=== PATIENT | female | born 1970 | race Caucasian/White ===

== ENCOUNTER → 2022-05-15 16:58 | Outpatient (BNVA) | payer OTHER, SELFPAY | PROVIDERS: PCP Family Medicine; Visit Provider Psychiatry & Neurology Psychiatry | DX: Z13.89 Encounter for screening for other disorder (principal) ==

== ENCOUNTER 2022-10-09 16:48 | Outpatient (AMB) | payer OTHER, SELFPAY ==
--- NOTE | 2022-10-09 15:43 | MHC.OFFVISPS ---
Intake Intake Visit Reasons: depression Allergies No Known Allergies [No Known Allergies*] Allergy (Unverified 11/26/19 15:53) HPI- Psychiatric Chief Complaint: depression HPI Narrative: Pt has been doing well , doing well well with her partner ,pts son has been tx for depression Son has taken leave from grad school he is in tx now they are living together the patient was initially quite shocked but now feels she has seen the signs. Her own mood Has been okay is stable. No significant panic has been in stable relationship with her partner Past Psychiatric History: Past history of ADD and depression Mental Status Exam Mental Status Exam Narrative: Mental Status Exam Narrative: Appearance: Casually dressed Behavior: Cooperative appropriate psychomotor: Within normal limits Speech: Normal volume and prosody Thought proccess logical and goal-directed Thought content: Future oriented no self-harming thoughts Mood: Euthymic Affect: Appropriate to mood full affect SI:denies HI:denies VH/AH:none Delusions: None Insight/judgment: Good insight and judgment Memory/cog: Intact Telehealth Telehealth Location of provider rendering services: practice address Location of patient: address on file Patient Identification confirmed using: Name, : Yes Telehealth method: video Patient verbally consented to treatment: Yes Patient verbally consented to billing insurance company: Yes Minutes spent on Phone/Video with Pt.: 40 Assessment and Plan Assessment & Plan (1) ADD (attention deficit disorder) without hyperactivity: Status: Acute Code(s): F98.8 - Other specified behavioral and emotional disorders with onset usually occurring in childhood and adolescence (2) Family circumstance: Status: Acute Code(s): Z63.9 - Problem related to primary support group, unspecified Plan discussion regarding patient's son things to watch at for , potential options for treatment. Patient quite solid relationship with her male partner supportive. Appropriate concerns regarding her son who is now taken a medical leave apparently has had a quite significant depressive episode. He has been more open and forthcoming recently. Did review near options for treatment as the patient her son live in [place] if he needs more intensive outpatient treatment. Medications: Refilled methylphenidate HCl (Ritalin) 15 mg (1.5 x 10 mg) PO BID 180 tabs 0RF F98.8 - Other specified behavioral and emotional disorders with onset usually occurring in childhood and adolescence Counseling and coordination of Care Details-Self Mgmt counseling: discussion regarding her son who is in tx for dep had to drop out of grad school Diagnosis and Prognosis Counseling: Adequacy of current interventions Details: I spent [40] minutes reviewing the record, seeing the patient and documenting in the medical record. Counseling provided to the patient/caregiver as outlined below. Addressed patient/caregiver concerns regarding current medication regime including effective adherence. Addressed patient/caregiver concerns regarding diagnosis and prognosis including accuracy of diagnosis, prognosis over time, impact of diagnosis. Addressed patient/caregiver concerns regarding impact of recent stressors. [facility] Medical History (Updated 01/22/22 @ 16:05 by Martell Villela MD) ADD (attention deficit disorder) without hyperactivity Social History: The patient works for [employer] lives with her long-term male partner has 1 son Substance History: None Coding Level of Care Code Est Pt Level 3 (93887) Therapy 30m w/E&M (14430) Diagnoses ADD (attention deficit disorder) without hyperactivity F98.8 Family circumstance Z63.9
== END 2022-10-09 16:49 | disposition home or self-care (01) ==
LOC: HO.HOP 16:48
PROVIDERS: PCP Family Medicine; Visit Provider Psychiatry & Neurology Psychiatry
DX: F98.8 Other specified behavioral and emotional disorders with onset usually occurring in childhood and adolescence (principal); Z63.9 Problem related to primary support group, unspecified
CPT/HCPCS: 90833; 99213

== ENCOUNTER → 2022-10-09 16:48 | Outpatient (BNVA) | payer OTHER, SELFPAY | PROVIDERS: PCP Family Medicine; Visit Provider Psychiatry & Neurology Psychiatry ==

== ENCOUNTER 2023-04-25 17:24 | Outpatient (AMB) | payer OTHER, SELFPAY ==
--- NOTE | 2023-04-25 16:18 | A.OFFPSYCH_ITS ---
Intake Intake Visit Reasons: depression Allergies No Known Allergies [No Known Allergies*] Allergy (Unverified 11/26/19 15:53) HPI- Psychiatric Chief Complaint: depression HPI Narrative: Pt had recent break up with her partner over her son living in the house after mental health crisis last yr break up happened 1 month ago . Trigger seem to be her son continuing to live with them and he had a mental health crisis last year and was trying to get back on his feet feels somewhat bittersweet regarding the situation were together off and on 10 yrs but feels good about the current decision Some appropriate sadness and anxiety but generally doing well continues to feel methylphenidate helpful has had some low-dose lorazepam in the past p.r.n. for anxiety Not overly depressed or preoccupied continues to do well at work [employer] generally works from home Past Psychiatric History: Past history of ADD and depression Mental Status Exam Mental Status Exam Narrative: Mental Status Exam Narrative: Appearance: Casually dressed Behavior: Cooperative appropriate psychomotor: Within normal limits Speech: Normal volume and prosody Thought proccess logical and goal-directed Thought content: Future oriented some concerns regarding break up Mood: some anxiety Affect: Appropriate to mood SI:denies HI:denies VH/AH:none Delusions: None Insight/judgment: Good insight and judgment Memory/cog: Intact Telehealth Telehealth Location of provider rendering services: practice address Location of patient: address on file Patient Identification confirmed using: Name, : Yes Telehealth method: video Patient verbally consented to treatment: Yes Patient verbally consented to billing insurance company: Yes Minutes spent on Phone/Video with Pt.: 32 Assessment and Plan Assessment & Plan (1) ADD (attention deficit disorder) without hyperactivity: Status: Acute Code(s): F98.8 - Other specified behavioral and emotional disorders with onset usually occurring in childhood and adolescence (2) Family circumstance: Status: Acute Code(s): Z63.9 - Problem related to primary support group, unspecified Plan Patient generally stable has been dealing with on again off again relationship with her live-in partner this appears to be the end the relationship patient appears to be dealing with it appropriately. She does have a history of depression her son had had his depression last year patient has done okay off antidepressant continues to feel methylphenidate helpful Given some lorazepam for occasional insomnia panic Medications: Refilled lorazepam 0.5 mg PO BID PRN 30 tabs 1RF anxiety methylphenidate HCl (Ritalin) 15 mg (1.5 x 10 mg) PO BID 180 tabs 0RF F98.8 - Other specified behavioral and emotional disorders with onset usually occurring in childhood and adolescence Counseling and coordination of Care Pt. Self Management counseling: Sleep hygiene and Behavior activation Medication management counseling: Effectiveness and Side effects Diagnosis and Prognosis Counseling: Problematic behaviors secondary to diagnosis Details: I spent [37] minutes reviewing the record, seeing the patient and documenting in the medical record. Counseling provided to the patient/caregiver as outlined below. Addressed patient/caregiver concerns regarding current medication regime including effective adherence. Addressed patient/caregiver concerns regarding diagnosis and prognosis including accuracy of diagnosis, prognosis over time, impact of diagnosis. Addressed patient/caregiver concerns regarding impact of recent stressors. [facility] Medical History (Updated 01/22/22 @ 16:05 by Martell Villela MD) ADD (attention deficit disorder) without hyperactivity Social History: The patient works for [employer] lives with her long-term male partner has 1 son Substance History: None Coding Level of Care Code Tele Est Pt Level 3 (19736) Tele Therapy 30m w/E&M (73701) Diagnoses ADD (attention deficit disorder) without hyperactivity F98.8 Family circumstance Z63.9
== END 2023-04-25 17:25 | disposition home or self-care (01) ==
LOC: HO.HOP 17:24
PROVIDERS: PCP Family Medicine; Visit Provider Psychiatry & Neurology Psychiatry
DX: F98.8 Other specified behavioral and emotional disorders with onset usually occurring in childhood and adolescence (principal); Z63.9 Problem related to primary support group, unspecified
CPT/HCPCS: 90833; 99213

== ENCOUNTER → 2023-04-25 17:24 | Outpatient (BNVA) | payer OTHER, SELFPAY | PROVIDERS: PCP Family Medicine; Visit Provider Psychiatry & Neurology Psychiatry | DX: F98.8 Other specified behavioral and emotional disorders with onset usually occurring in childhood and adolescence (principal) ==

== ENCOUNTER 2023-09-06 11:51 | Outpatient (AMB) | payer OTHER, SELFPAY ==
--- NOTE | 2023-09-06 11:55 | MHC.OFFVISPS ---
Intake Vital Signs 09/08/23 21:27 BP 117/75 Intake Visit Reasons: depression Allergies No Known Allergies [No Known Allergies*] Allergy (Unverified 11/26/19 15:53) Medication List - Last Reconciled 09/06/23 by Martell Villela MD lorazepam 0.5 mg PO BID PRN methylphenidate HCl (Ritalin) 15 mg (1.5 x 10 mg) PO BID HPI- Psychiatric Chief Complaint: depression HPI Narrative: The pt has generally been doing well had breakup earlier in the yr . Son living with the pt did [employer] will be getting a job he will be staying around for period of time. Son has had tx for anxiety dx generally doing well. No new medical issues . The patient has felt more scattered some difficulty at times with attention distractibility. Her son reportedly will be sharing the house with patient and living together ongoing at least for now. This is reassuring to the patient there has been some financial stress since she and her long-term boyfriend broke up Past Psychiatric History: Past history of ADD and depression Mental Status Exam Mental Status Exam Narrative: Mental Status Exam Narrative: Appearance: Casually dressed Behavior: Cooperative appropriate psychomotor: Within normal limits Speech: Normal volume and prosody Thought proccess logical and goal-directed Thought content: Future oriented some concerns regarding future Mood: some anxiety Affect: Appropriate to mood SI:denies HI:denies VH/AH:none Delusions: None Insight/judgment: Good insight and judgment Memory/cog: Intact Assessment and Plan Assessment & Plan (1) ADD (attention deficit disorder) without hyperactivity: Status: Acute Code(s): F98.8 - Other specified behavioral and emotional disorders with onset usually occurring in childhood and adolescence Plan The patient is having some perimenopausal symptoms we discussed different strategies and options to deal with insomnia and hot flashes she also may be grinding her teeth at night we discussed a trial of gabapentin risks benefits alternatives discussed discussed the addition B vitamins patient will be seeing her PCP and developer relations manager increase Ritalin from 30 mg to 40 mg day blood pressure 117/75 follow-up 2 months Medications: New gabapentin 100 - 300 mg (1 - 3 x 100 mg) PO BEDTIME 90 caps 1RF Changed From methylphenidate HCl (Ritalin) 15 mg (1.5 x 10 mg) PO BID 180 tabs 0RF F98.8 - Other specified behavioral and emotional disorders with onset usually occurring in childhood and adolescence To methylphenidate HCl (Ritalin) orally; 1 1/2 tabs morning and aft may take 1 tab daily also as needed add sx 240 tabs 0RF 2 months F98.8 - Other specified behavioral and emotional disorders with onset usually occurring in childhood and adolescence Counseling and coordination of Care Medication management counseling: Effectiveness, Side effects and Dosing range Details: I spent [38] minutes reviewing the record, seeing the patient and documenting in the medical record. Counseling provided to the patient/caregiver as outlined below. Addressed patient/caregiver concerns regarding current medication regime including effective adherence. Addressed patient/caregiver concerns regarding diagnosis and prognosis including accuracy of diagnosis, prognosis over time, impact of diagnosis. Addressed patient/caregiver concerns regarding impact of recent stressors. [facility] Medical History (Updated 01/22/22 @ 16:05 by Martell Villela MD) ADD (attention deficit disorder) without hyperactivity Social History: The patient works for [employer] lives with her long-term male partner has 1 son Substance History: None Coding Level of Care Code Est Pt Level 3 (93124) Therapy 30m w/E&M (67220) Diagnoses ADD (attention deficit disorder) without hyperactivity F98.8
[2023-09-08 21:27] VITALS: BP 117/75
== END 2023-09-06 12:00 ==
LOC: HO.HOP 11:51
PROVIDERS: PCP Family Medicine; Visit Provider Psychiatry & Neurology Psychiatry
DX: F98.8 Other specified behavioral and emotional disorders with onset usually occurring in childhood and adolescence (principal)
CPT/HCPCS: 90833; 99213

== ENCOUNTER → 2023-09-06 11:51 | Outpatient (BNVA) | payer OTHER, SELFPAY | PROVIDERS: PCP Family Medicine; Visit Provider Psychiatry & Neurology Psychiatry ==

== ENCOUNTER 2024-04-16 14:36 | Outpatient (AMB) | payer OTHER, SELFPAY ==
--- NOTE | 2024-04-16 11:08 | A.OFFPSYCH_ITS ---
Intake Intake Visit Reasons: depression Allergies No Known Allergies [No Known Allergies*] Allergy (Unverified 11/26/19 15:53) Medication List - Last Reconciled 04/16/24 by Martell Villela MD albuterol sulfate 90 mcg/actuation inhalation cephalexin 500 mg PO TID methylphenidate HCl (Ritalin) orally; 1 1/2 tabs morning and aft may take 1 tab daily also as needed add sx 2 months rosuvastatin 5 mg PO DAILY HPI- Psychiatric Chief Complaint: depression HPI Narrative: The pt is seen in f/u had kidney stones x 3 months son is working for [employer] he is IT . Pt has lost 60 lbs over past 6 months bp has been good has started on statin medication . 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 Has not been taking gabapentin pt is on hrt . On estrogen patch has not needed lorazepam. Past Psychiatric History: Past history of ADD and depression Mental Status Exam Mental Status Exam Narrative: Mental Status Exam Narrative: Appearance: Casually dressed Behavior: Cooperative appropriate psychomotor: Within normal limits Speech: Normal volume and prosody Thought proccess logical and goal-directed Thought content: Future oriented some concerns regarding future Mood: some anxiety Affect: Appropriate to mood SI:denies HI:denies VH/AH:none Delusions: None Insight/judgment: Good insight and judgment Memory/cog: Intact Assessment and Plan Assessment & Plan (1) ADD (attention deficit disorder) without hyperactivity: Status: Acute Code(s): F98.8 - Other specified behavioral and emotional disorders with onset usually occurring in childhood and adolescence Plan Patient doing quite well generally continues to feel that methylphenidate treatment for ADD and work focus has been quite helpful no complaints of palpitations chest pain or increased anxiety. Things are working out with her son living with her Medications: New cephalexin 500 mg PO TID albuterol sulfate 90 mcg/actuation inhalation rosuvastatin 5 mg PO DAILY Changed From methylphenidate HCl orally; 1 1/2 tabs morning and aft may take 1 tab daily also as needed add sx 2 months 240 tabs 0RF F98.8 - Other specified behavioral and emotional disorders with onset usually occurring in childhood and adolescence To methylphenidate HCl (Ritalin) orally; 1 1/2 tabs morning and aft may take 1 tab daily also as needed add sx 240 tabs 0RF 2 months F98.8 - Other specified behavioral and emotional disorders with onset usually occurring in childhood and adolescence Counseling and coordination of Care Details: I spent [] minutes reviewing the record, seeing the patient and documenting in the medical record. Counseling provided to the patient/caregiver as outlined below. Addressed patient/caregiver concerns regarding current medication regime including effective adherence. Addressed patient/caregiver concerns regarding diagnosis and prognosis including accuracy of diagnosis, prognosis over time, impact of diagnosis. Addressed patient/caregiver concerns regarding impact of recent stressors. [facility] Medical History (Updated 01/22/22 @ 16:05 by Martell Villela MD) ADD (attention deficit disorder) without hyperactivity Social History: The patient works for [employer] lives with her long-term male partner has 1 son Substance History: None Coding Level of Care Code Tele Est Pt Level 4 (71957) Tele Therapy 30m w/E&M (94778) Diagnoses ADD (attention deficit disorder) without hyperactivity F98.8
--- OUTSIDE RECORDS SUMMARY | 2024-04-16 14:38 | XMS_ITS | Encounter Summary ---
Author Organization [facility] Address [address] [place] [address] Care Team Providers Care Color Worker Name Role Phone Mayra Castro MD Primary Care Provider [phone] Encounter Details Date Type Department Care Team (Late st Contact Info) Description 03/03/2024 Lab Requisition [facility] - Main Lab [address] [facility] [place] [address] Venice Hurley PA [address] [facility] [address] [place] [address] Bacteriuria Social History Tobacco Use Types Packs/Day Years Used Date Smoking Tobacco: Never Assessed Sex and Gender Information Value Date Recorded Sex Assigned at Not on file Gender Identity Not on file Sexual Orientation Not on file documented as of this encounter Plan of Treatment Not on file documented as of this encounter Procedures Procedure Name Priority Date/Time Associated Diagnosis Comments BACTERIAL IDENTIFICATION AND SUSCEPTIBILITY, AEROBIC Routine 03/02/2024 12:00 AM EST Bacteriuria documented in this encounter Results * Bacterial identification and susceptibility, aerobic (03/02/2024 12:00 AM EST) Culture, Bacterial ID and Sensitivity Multiple bacterial morphotypes present consistent with either contamination or urogenital schuyler. Suggest repeat specimen, if clinically indicated. 03/04/2024 9:26 AM EST [facility] Other Urine specimen from urethra / Unknown 03/02/2024 03/03/2024 10:56 AM EST [facility] MICROBIOLOGY - G ENERAL ORDERABLES [facility] [address] [place] [address], documented in this encounter Visit Diagnoses Diagnosis Bacteriuria Other nonspecific finding on examination of urine documented in this encounter Care Teams Color Worker Relationship Specialty Start Date End Date Mayra Castro MD [address] [place] [address], [address] [place] [address] PCP - General Family Medicine 03/03/24 documented as of this encounter
--- OUTSIDE RECORDS SUMMARY | 2024-04-16 14:38 | XMS_ITS | Clinical Summary ---
Demographics Address [address] [place] [address] Home Phone Work Phone Preferred Language Unknown Marital Status Unknown Christian Affiliation Unknown Race Unknown Ethnic Group Unknown Author Organization [address] [facility] Address [address] [place] [address] Phone Care Team Providers Care Associate Curator Name Role Phone Mayra Castro MD Primary Care Provider [phone] Encounters Date Type Department Care Team Description 03/03/2024 Lab Requisition [facility] [address] [place] [address] Venice Hurley PA Bacteriuria 01/16/2024 Lab Requisition [facility] [address] [place] [address] Kirby Sheppard PA Urgency of urination from Last 3 Months Social History Tobacco Use Types Packs/Day Years Used Date Smoking Tobacco: Never Assessed Sex and Gender Information Value Date Recorded Sex Assigned at Not on file Gender Identity Not on file Sexual Orientation Not on file Plan of Treatment Health Maintenance Due Date Last Done Comments Hepatitis B Vaccines (1 of 3 - 19+ 3-dose series) 1991 Cervical Cancer Screening: Pap Smear 1993 Breast Cancer Screening 10/31/2023 10/30/2021 Colorectal Cancer Screening: Colonoscopy 01/16/2024 Depression Screening 01/16/2024 08/03/2022 HIV Screening 01/16/2024 Social Influencers of Health Screening 01/16/2024 Zoster Vaccines (2 of 2) 02/14/2024 12/20/2023 Hypertension/CHF/CAD Annual BMP Blood Test 02/27/2024 08/25/2020, 03/13/2018 DTaP,Tdap,and Td Vaccines (3 - Td or Tdap) 08/10/2025 08/11/2015, 09/29/1999 Cholesterol Screening (Lipid Panel) 10/29/2028 10/30/2023 Hepatitis C Screening Completed 09/06/2020 Pneumococcal Vaccine: Pediatrics (0 to 5 Years) and At-Risk Patients (6 to 64 Years) Aged Out 03/09/2021 No longer eligible based on patient's age to complete this topic COVID-19 Vaccine Completed 12/20/2023, 02/2023, 01/03/2022, Additional history exists Influenza Vaccine Completed 12/20/2023, , 01/03/2022, Additional history exists HIB Vaccines Aged Out No longer eligi ble based on patient's age to complete this topic HPV Vaccines Aged Out No longer eligi ble based on patient's age to complete this topic Hepatitis A Vaccines Aged Out No long er eligible based on patient's age to complete this topic IPV Vaccines Aged Out No longer eligi ble based on patient's age to complete this topic MMR Vaccines Aged Out No longer eligi ble based on patient's age to complete this topic Meningococcal ACWY Vaccine Aged Out N o longer eligible based on patient's age to complete this topic RSV Immunization Patients Under 20 months Aged Out No longer eligible based on patient's age to complete this topic Varicella Vaccines Aged Out No longer eligible based on patient's age to complete this topic Procedures Procedure Name Priority Date/Time Associated Diagnosis Comments BACTERIAL IDENTIFICATION AND SUSCEPTIBILITY, AEROBIC Routine 03/02/2024 12:00 AM EST Bacteriuria BACTERIAL IDENTIFICATION AND SUSCEPTIBILITY, AEROBIC Routine 01/15/2024 12:00 AM EST Urgency of urination from Last 3 Months Results * Bacterial identification and susceptibility, aerobic (03/02/2024 12:00 AM EST) Only the most recent of2 resultswithin the time period is included. Culture, Bacterial ID and Sensitivity Multiple bacterial morphotypes present consistent with either contamination or urogenital schuyler. Suggest repeat specimen, if clinically indicated. 03/04/2024 9:[address] [facility] Other Urine specimen from urethra / Unknown 03/02/2024 03/03/2024 10:56 AM EST [facility] MICROBIOLOGY - G ENERAL ORDERABLES [facility] [address] [place] [address], from Last 3 Months Guarantor Name Account Type Relation to Patient Date of Phone Billing Address Marisol Zamarripa Personal/Family Self 1970 [address] [facility] [address] [place] [address] Care Teams Associate Curator Relationship Specialty Start Date End Date Mayra Castro MD [address] [place] [address], [address] [place] [address] PCP - General Family Medicine 03/03/24
--- OUTSIDE RECORDS SUMMARY | 2024-04-16 14:38 | XMS_ITS | Encounter Summary ---
Author Organization [facility] Address [address] [place] [address] Care Team Providers Care Affiliate Marketing Coordinator Name Role Phone Mayra Castro MD Primary Care Provider [phone] Encounter Details Date Type Department Care Team (Late st Contact Info) Description 01/16/2024 Lab Requisition [facility] - Main Lab [address] [facility], [facility] [place] [address] Kirby Sheppard PA [address] [place] [address] Urgency of urination Social History Tobacco Use Types Packs/Day Years [...] Comments BACTERIAL IDENTIFICATION AND SUSCEPTIBILITY, AEROBIC Routine 01/15/2024 12:00 AM EST Urgency of urination documented in this encounter Results * (ABNORMAL) Bacterial identification and susceptibility, aerobic (01/15/2024 12:00 AM EST) Culture, Bacterial ID and Sensitivity Escherichia coli(A) JOSSY 01/18/2024 9:22 AM EST [facility] Comment: This is an edited result. Previous organism was Gram negative bacilli on 01/17/2024 at 1137 EST. Culture, Bacterial ID and Sensitivity Staphylococcus epidermidis(A) JOSSY 01/18/2024 9:22 AM EST [facility] Comment: The organism value for this result has been updated. These results have been appended to the previously preliminary verified report. Edited result: Previously reported as Gram Positive Cocci on 01/17/2024 at 1148 EST. Other Topography unknown / Unknown 01/15/2024 01/16/2024 10:15 AM EST Narrative Organism Antibiotic Method Susceptibility Escherichia coli Amoxicillin/Clavulanate JOSSY <=2 ug/ml: Susceptible Escherichia coli Ampicillin/Sulbactam JOSSY <=2 ug/ml: Susceptible Escherichia coli Piperacillin/Tazobactam JOSSY <=4 ug/ml: Susceptible Escherichia coli Cefazolin (Urine) JOSSY 2 ug/ml: Susceptible Escherichia coli Cefoxitin JOSSY <=4 ug/ml: Susceptible Escherichia coli Ceftazidime JOSSY <=0.5 ug/ml: Susceptible Escherichia coli Ceftriaxone JOSSY <=0.25 ug/ml: Susceptible Escherichia coli Cefepime JOSSY <=0.12 ug/ml: Susceptible Escherichia coli Meropenem JOSSY <=0.25 ug/ml: Susceptible Escherichia coli Amikacin JOSSY 2 ug/ml: Susceptible Escherichia coli Gentamicin JOSSY <=1 ug/ml: Susceptible Escherichia coli Ciprofloxacin JOSSY <=0.06 ug/ml: Susceptible Escherichia coli Levofloxacin JOSSY <=0.12 ug/ml: Susceptible Escherichia coli Trimethoprim/Sulfame thoxazo le JOSSY <=20 ug/ml: Susceptible Staphylococcus epidermidis Benzylpenicillin JOSSY >=0.5 ug/ml: Resistant Staphylococcus epidermidis Oxacillin JOSSY >=4 ug/ml: Resistant Staphylococcus epidermidis Gentamicin JOSSY <=0.5 ug/ml: Susceptible Staphylococcus epidermidis Ciprofloxacin JOSSY <=0.5 ug/ml: Susceptible Staphylococcus epidermidis Levofloxacin JOSSY <=0.12 ug/ml: Susceptible Staphylococcus epidermidis Quinupristin/Dalfopristin M IC <=0.25 ug/ml: Susceptible Staphylococcus epidermidis Linezolid JOSSY 1 ug/ml: Susceptible Staphylococcus epidermidis Vancomycin JOSSY 1 ug/ml: Susceptible Staphylococcus epidermidis Tetracycline JOSSY 2 ug/ml: Susceptible Staphylococcus epidermidis Nitrofurantoin JOSSY <=16 ug/ml: Susceptible Staphylococcus epidermidis Rifampin JOSSY <=0.5 ug/ml: Susceptible [facility] MICROBIOLOGY - G ENERAL ORDERABLES [facility] [address] [place] [address], documented in this encounter Visit Diagnoses Diagnosis Urgency of urination documented in this encounter Care Teams Affiliate Marketing Coordinator Relationship Specialty Start Date End Date Mayra Castro MD [address] [place] [address], [address] [place] [address] PCP - General Family Medicine 03/03/24 documented as of this encounter
== END 2024-04-16 14:37 | disposition home or self-care (01) ==
LOC: HO.HOP 14:36
PROVIDERS: PCP Family Medicine; Visit Provider Psychiatry & Neurology Psychiatry
DX: F98.8 Other specified behavioral and emotional disorders with onset usually occurring in childhood and adolescence (principal)
CPT/HCPCS: 90833; 99214

== ENCOUNTER → 2024-04-16 14:36 | Outpatient (BNVA) | payer OTHER, SELFPAY | PROVIDERS: PCP Family Medicine; Visit Provider Psychiatry & Neurology Psychiatry | DX: F98.8 Other specified behavioral and emotional disorders with onset usually occurring in childhood and adolescence (principal) ==

== ENCOUNTER 2024-11-06 12:55 | Outpatient (AMB) | payer OTHER, SELFPAY ==
--- NOTE | 2024-11-06 12:48 | MHC.OFFVISPS ---
Intake Intake Visit Reasons: ADD Allergies No Known Allergies (No Known Allergies*) Allergy (Unverified 11/26/19 15:53) Medication List - Last Reconciled 11/06/24 by Martell Villela MD albuterol sulfate 90 mcg/actuation inhalation cephalexin 500 mg PO TID lisinopril 10 mg PO DAILY methylphenidate HCl (Ritalin) orally; 1 1/2 tabs morning and aft may take 1 tab daily also as needed add sx 2 months montelukast 10 mg PO QPM rosuvastatin 5 mg PO DAILY HPI- Psychiatric Chief Complaint: ADD HPI Narrative: Pt seen in f/u last bp 111/74 in may wt 165 looking to get off lower some bp medication off tamulosin continues to feel that methylphenidate is helpful. Patient doing well at work and at home. Her son is living with her and they get along well. No complaints of side effects or adverse reactions. Past Psychiatric History: Past history of ADD and depression Mental Status Exam Mental Status Exam Narrative: Mental Status Exam Narrative: Appearance: Casually dressed Behavior: Cooperative appropriate psychomotor: Within normal limits Speech: Normal volume and prosody Thought proccess logical and goal-directed Thought content: Future oriented Mood: some anxiety Affect: Appropriate to mood SI:denies HI:denies VH/AH:none Delusions: None Insight/judgment: Good insight and judgment Memory/cog: Intact Telehealth Telehealth Telehealth Platform: [facility] Location of provider rendering services: practice address Location of patient: address on file Patient Identification confirmed using: Name, : Yes Telehealth method: video Patient verbally consented to treatment: Yes Patient verbally consented to billing insurance company: Yes Minutes spent on Phone/Video with Pt.: 16 Assessment and Plan Assessment & Plan (1) ADD (attention deficit disorder) without hyperactivity: Status: Acute Code(s): F98.8 - Other specified behavioral and emotional disorders with onset usually occurring in childhood and adolescence Plan Patient doing well chronically on methylphenidate discussed with patient given that she has been stable for an extended period of time that she should be able to follow-up with her primary care physician and she did accept this Counseling and coordination of Care Medication management counseling: Effectiveness and Side effects Diagnosis and Prognosis Counseling: Prognosis over time and Adequacy of current interventions Details: I spent [20] minutes reviewing the record, seeing the patient and documenting in the medical record. Counseling provided to the patient/caregiver as outlined below. Addressed patient/caregiver concerns regarding current medication regime including effective adherence. Addressed patient/caregiver concerns regarding diagnosis and prognosis including accuracy of diagnosis, prognosis over time, impact of diagnosis. Addressed patient/caregiver concerns regarding impact of recent stressors. [facility] Medical History (Updated 01/22/22 @ 16:05 by Martell Villela MD) ADD (attention deficit disorder) without hyperactivity Social History: The patient works for [employer] lives with her long-term male partner has 1 son Substance History: None Coding Level of Care Code Tele Est Pt Level 3 (37492) Diagnoses ADD (attention deficit disorder) without hyperactivity F98.8
--- OUTSIDE RECORDS SUMMARY | 2024-11-06 13:20 | XMS_ITS | Encounter Summary ---
Author Organization [facility] Address [address] [place] [address] Care Team Providers Care Supervisor Vegetable Farming Name Role Phone Mayra Castro MD Primary Care Provider [phone] Encounter Details Date Type Department Care Team (Late st Contact Info) Description 01/16/2024 Lab Requisition [facility] - Main Lab [address] [facility] [place] [address] Kirby Sheppard PA [address] [place] [address] Urgency of urination Social History Tobacco Use Types Packs/Day Years Used Date Smoking Tobacco: Never Assessed Comments Unknown Sex and Gender Information Value Date Recorded Sex Assigned at Not on file Legal Sex Female 10:11 AM EST Gender Identity Not on file Sexual Orientation [...] Escherichia coli(A) JOSSY 01/18/2024 9:22 AM EST [facility] Comment: This is an edited result. Previous organism was Gram negative bacilli on 01/17/2024 at 1137 EST. Culture, Bacterial ID and Sensitivity Staphylococcus epidermidis(A) JOSSY 01/18/2024 9:22 AM EST [facility] Comment: The organism value for this [...] Staphylococcus epidermidis Rifampin JOSSY <=0.5 ug/ml: Susceptible us [facility] MICROBIOLOGY - GENERAL ORDER KELLY Final Result [facility] ([facility] [address] [place], [place] [address] [phone] documented in this encounter Visit Diagnoses Diagnosis Urgency of urination documented in this encounter Care Teams Supervisor Vegetable Farming Relationship Specialty Start Date End Date Mayra Castro MD [address] [place] [address], [address] [place] [address] PCP - General Family Medicine 03/03/24 documented as of this encounter
--- OUTSIDE RECORDS SUMMARY | 2024-11-06 13:20 | XMS_ITS | Encounter Summary ---
Demographics Address [address] [place] [address] Home Phone Work Phone Preferred Language Unknown Marital Status Unknown Pentecostalism Affiliation Unknown Race Unknown Ethnic Group Unknown Author Organization [facility] Address [address] [place] [address] Care Team Providers Care Financial Internship Name Role Phone Mayra Castro MD Primary Care Provider [phone] Encounter Details Date Type Department Care Team (Late st Contact Info) Description 03/03/[address] [facility] - Main Lab [address] [place] [address] Venice Hurley PA [address] [place] [address] Bacteriuria Social History Tobacco Use Types Packs/Day [...] if clinically indicated. 03/04/2024 9:26 AM EST [facility] Other Urine specimen from urethra / Unknown 03/02/2024 03/03/2024 10:56 AM EST us [facility] MICROBIOLOGY - GENERAL ORDER KELLY Final Result [facility] [place] [facility] [address] [place] [address], documented in this encounter Visit Diagnoses Diagnosis Bacteriuria Other nonspecific finding on examination of urine documented in this encounter Care Teams Financial Internship Relationship Specialty Start Date End Date Mayra Castro MD [address] [place] [address], [address] [place], [place] [id number] PCP - General Family Medicine 03/03/24 documented as of this encounter
--- OUTSIDE RECORDS SUMMARY | 2024-11-06 13:20 | XMS_ITS | Clinical Summary ---
Demographics Address [address] [place] [address] Home Phone Work Phone Preferred Language Unknown Marital Status Unknown Anabaptism Affiliation Unknown Race Unknown Ethnic Group Unknown Author Organization [address] [facility] Address [address] [place] [address] Phone Care Team Providers Care Radio Aerial Installer Name Role Phone Mayra Castro MD Primary Care Provider [phone] Social History Tobacco Use Types Packs/Day Years [...] 1991 Cervical Cancer Screening: Pap Smear 1993 Pneumococcal Vaccine: 50+ Years (2 of 2 - PCV) 2022 03/09/2021 Breast Cancer Screening 10/31/2023 10/30/2021 Colorectal Cancer Screening: Colonoscopy 01/16/2024 HIV Screening 01/16/2024 Social Influencers of Health Screening 01/16/2024 Zoster Vaccines (2 of 2) 02/14/2024 12/20/2023 Hypertension/CHF/CAD Annual BMP Blood Test 02/27/2024 08/25/2020, 03/13/2018 Depression Screening 03/11/2024 Influenza Vaccine (#1) 2024 , 12/20/2022, 01/03/2022, Additional history exists DTaP,Tdap,and Td Vaccines (3 - Td or Tdap) 08/10/2025 08/11/2015, 09/29/1999 Cholesterol Screening (Lipid Panel) 10/29/2028 10/30/2023 Hepatitis C Screening Completed 09/06/2020 COVID-19 Vaccine Completed 12/20/2023, 02/2023, 01/03/2022, Additional history exists HIB Vaccines Aged [...] patient's age to complete this topic Meningococcal B Vaccine Aged Out No l onger eligible based on patient's age to complete this topic RSV Immunization Patients Under 20 months Aged Out No longer eligible based on patient's age to complete this topic Varicella Vaccines Aged Out No longer eligible based on patient's age to complete this topic Insurance [facility] Care Teams Radio Aerial Installer Relationship Specialty Start Date End Date Mayra Castro MD [address] [place] [address], [address] [place] [address] PCP - General Family Medicine 03/03/24
== END 2024-11-06 12:56 | disposition home or self-care (01) ==
LOC: HO.HOP 12:55
PROVIDERS: PCP Family Medicine; Visit Provider Psychiatry & Neurology Psychiatry
DX: F98.8 Other specified behavioral and emotional disorders with onset usually occurring in childhood and adolescence (principal)
CPT/HCPCS: 99213